=== PATIENT | female | born 1950 | race Caucasian/White ===

== ENCOUNTER → 2016-05-21 | Outpatient (CLI) | payer OTHER ==
--- NOTE | 2016-05-21 13:56 | MA ---
Left Diagnostic Digital Mammogram with iCAD Clinical Indications: Possible architectural distortion on recent screening mammogram. Technique: Digital spot compression CC, spot mediolateral oblique and true lateral views. This examin ation was processed by the iCAD computer-aided detection system. Comparison: Recent mammogram. April 2016. Breast Density: 3, 50-75%. Findings: Previous asymmetric density identified is no longer detected on the additional views or margarita e lateral views. No evidence of architectural distortion or definite focal asymmetry. However, this i s in the retroareolar regions and there are no prior studies for comparison. Although this is probabl y normal overlapping breast parenchyma, additional imaging with ultrasound is recommended. Impression: ACR BI-RADS 0: Needs further imaging. Recommendation: Ultrasound of the left breast retroareolar region which will be subsequently performe d. Please see ultrasound report and recommendations. Findings and recommendations have been discussed with the patient who agrees with the plan. [facility] will send a result letter to the patient.
--- NOTE | 2016-05-21 15:43 | US ---
Ultrasound left Breast History: Possible architectural distortion on mammogram. Comparison: Today's mammogram. Technique: Ultrasound imaging of the retroareolar region of the left breast was performed by the sono grapher and me. Findings: No ultrasound evidence of dominant solid or cystic lesion in the the retroareolar region of the left breast. Mammogram and ultrasound appear benign without evidence of architectural distortion , dominant densities or suspicious findings. Impression: 1. BI-RADS 1: Negative ultrasound of the left breast. 2. No ultrasound evidence of suspicious findings left breast retroareolar region or suspicious findin gs on mammogram. 3. Recommend annual screening mammograms with next mammogram in April 2017. Findings and recommendations have been discussed with the patient who agrees with the plan.
== END ==
LOC: CIMAGING 13:08
PROVIDERS: ATTEND Family Medicine
DX: R92.2 Inconclusive mammogram (principal)
CPT/HCPCS: 76641; G0206

== ENCOUNTER 2016-05-27 21:23 | Emergency (ER) | payer OTHER ==
[2016-05-27 21:42] VITALS: BP 125/78; PULSE 78; RESP 18; TEMP 98; O2SAT 98
--- NOTE | 2016-05-27 21:55 | UCPHY ---
H & P Time Seen by Provider: 05/27/16 21:30 Patient Type: Established HPI/ROS: HPI Right ear clogged. 65-year-old female by private vehicle. She presents to Urgent Care complaining of her right ear being clogged with wax. She denies any history of trauma to the right ear. No headache. No facial swelling. No other complaint. ROS: Constitutional: No fever, no chills. No weakness. Eyes: No discharge. No changes in vision. ENT: No sore throat. No nasal congestion or rhinorrhea. As above. Neurological: No headache. Past medical history: Herpes simplex 2, hypothyroid. Dr. Rodriguez is her primary care physician. Social history: Here by herself. Physical Exam: General Appearance: Alert, no distress. This patient is responding to questions appropriately and in full sentences. This patient appears well- hydrated and well-nourished. Eyes: Pupils equal and round no pallor or injection. No lid edema, erythema or injection. ENT: Impacted cerumen in the right external auditory canal. The left external auditory canal has some cerumen but is patent with a visible and normal tympanic membrane. Neurological: Motor sensory function is grossly intact. Cranial nerves are normal. Gait is normal. Skin: Warm and dry, no rashes. Extremities are symmetrical. All joints range without pain or impingement. Psychiatric: No agitation. No depression. Database: EKG: Imaging: Procedures: Emergency department course: Debrox applied to right and left external auditory canals. External auditory canals irrigated and cleansed of cerumen with good results without complication. Follow-up with ENT and return to Urgent Care precautions reviewed with patient. All of her questions were answered. She was discharged in good condition. Differential Diagnosis: The differential diagnosis on this patient includes but is not limited to impacted cerumen of right ear. Otitis externa, mastoiditis, otitis media, barotrauma unlikely. This represents a partial list of diagnoses considered. These considerations are based on history, physical exam, past history and reassessment. Smoking Status: Unknown if ever smoked Constitutional: Initial Vital Signs Temperature (C) 36.6 C 05/27/16 21:40 Heart Rate 78 05/27/16 21:40 Respiratory Rate 18 05/27/16 21:40 Blood Pressure 125/78 H 05/27/16 21:40 O2 Sat (%) 98 01/12/17 21:40 O2 Delivery Mode Room Air Allergies/Adverse Reactions: No Known Allergies Allergy (Verified 07/25/14 22:49) Home Medications: Medication Instructions Recorded Acyclovir 200 mg PO BID 04/18/12 Levothyroxine [Synthroid 25 mcg 25 mcg PO DAILY06 04/18/12 (RX)] MDM/Departure - Depart Disposition: Home, Routine, Self-Care Clinical Impression: Clogged ear, Impacted cerumen of right ear Condition: Good Instructions: Cerumen Impaction (ED) Additional Instructions: Read and follow provided instructions. Follow-up with your primary care physician in 1-2 days or with ENT as discussed for re-evaluation as needed. Return to the emergency department for worsening symptoms or other serious concerns. Referrals: Neelima Pinon [Primary Care Provider] - As per Instructions Rell Elkins MD [Medical Doctor] - As per Instructions - PQRS PQRS Measurement: 134: Depression screening and followup, PRIME MD-PHQ2 (12 years and older) Over the last 2 weeks, how often have you been bothered by any of the following problems? 1. Feeling down, depressed, or hopeless? 2. Little interest or pleasure in doing things? Answered no to both questions. 130: Documentation of medications. Reviewed all patient medications, doses, route and frequency. 226: Do you smoke? No. 47: 65 and older: Advanced care planning. Patient designates surrogate decision maker as family. 51: 18 years old and older with diagnosis of COPD, spirometry performance. NA 52: 18 years old and older with COPD and symptoms of COPD or FEV1<60% predicted prescribed a B Agonist. NA
== END 2016-05-27 22:53 | disposition home or self-care (01) ==
LOC: CED 21:23
PROC: 3E1B78Z Irrigation of Ear using Irrigating Substance, Via Natural or Artificial Opening (ICD-10-PCS; principal; 2016-05-27)
DX: H61.23 Impacted cerumen, bilateral (principal); E03.9 Hypothyroidism, unspecified
CPT/HCPCS: 69209; G0463; 99214-PO

== ENCOUNTER → 2017-10-14 | Outpatient (CLI) | payer OTHER | LOC: BRMIMAGING 13:05 | PROVIDERS: ATTEND Family Medicine | DX: Z12.31 Encounter for screening mammogram for malignant neoplasm of breast (principal); Z13.820 Encounter for screening for osteoporosis; M81.0 Age-related osteoporosis without current pathological fracture; E07.9 Disorder of thyroid, unspecified; Z91.81 History of falling; Z78.0 Asymptomatic menopausal state ==